=== PATIENT | female | born 1950 | race Caucasian/White ===

== ENCOUNTER 2017-07-21 07:11 | Day surgery (SDC) | payer OTHER ==
[~2017-07-21] VITALS: Ht 167.6 cm; Wt 72.6 kg
[~2017-07-21 07:11] MED LIST: AMOX875; CONEST.3 PO; CONEST.9 PO; HYDACE5 PO; NAPR500 PO; Pepcid 20 mg Ta20 MG GT
[2018-02-23] MEDS ORDERED: Ocuflox5 ML OD (17:48)
[2018-02-23] MEDS ORDERED: GENPREOPSU (17:48)
[2018-02-23] MEDS ORDERED: NEO-POLYCIN HC3.5 GM OP (17:49)
[2018-02-23] MEDS ORDERED: Bactrim Ds Tab1 EACH PO (20:18)
== END 2017-07-21 09:04 | disposition home or self-care (01) ==
LOC: ORSCMMR 07:11
PROVIDERS: Internal Medicine Gastroenterology
PROC: 0DB58ZX Excision of Esophagus, Via Natural or Artificial Opening Endoscopic, Diagnostic (ICD-10-PCS; principal; 2017-07-21 08:00)
PROC: 0DB68ZX Excision of Stomach, Via Natural or Artificial Opening Endoscopic, Diagnostic (ICD-10-PCS; principal; 2017-07-21 08:00)
PROC: 0D758ZZ Dilation of Esophagus, Via Natural or Artificial Opening Endoscopic (ICD-10-PCS; principal; 2017-07-21 08:00)
PROC: 0DB48ZX Excision of Esophagogastric Junction, Via Natural or Artificial Opening Endoscopic, Diagnostic (ICD-10-PCS; principal; 2017-07-21 08:00)
DX: K21.9 Gastro-esophageal reflux disease without esophagitis (principal); K22.2 Esophageal obstruction; K44.9 Diaphragmatic hernia without obstruction or gangrene; R13.10 Dysphagia, unspecified; Z79.890 Hormone replacement therapy
CPT/HCPCS: 88305; 88342; C1726; J7120

== ENCOUNTER 2018-02-25 15:01 | Emergency (ER) | payer OTHER ==
[~2018-02-25] VITALS: Ht 167.6 cm; Wt 65.8 kg
[~2018-02-25 15:01] MED LIST changes: +Bactrim Ds Tab1 EACH PO; +GENPREOPSU; +NEO-POLYCIN HC3.5 GM OP; +Ocuflox5 ML OD
[2018-02-25] MEDS ORDERED: OXYB5 PO (16:11)
[2018-02-25] MEDS ORDERED: TAMS.4ER PO (16:12)
== END 2018-02-25 16:54 | disposition home or self-care (01) ==
LOC: ER 15:01
DX: N99.89 Other postprocedural complications and disorders of genitourinary system (principal); R33.9 Retention of urine, unspecified; Z79.899 Other long term (current) drug therapy
CPT/HCPCS: 51702; 51798; 99282

== ENCOUNTER 2018-02-27 08:42 | Emergency (ER) | payer OTHER ==
[~2018-02-27] VITALS: Ht 167.6 cm; Wt 65.8 kg
[~2018-02-27 08:42] MED LIST changes: +OXYB5 PO; +TAMS.4ER PO
== END 2018-02-27 09:29 | disposition home or self-care (01) ==
LOC: ER 08:42
DX: Z46.6 Encounter for fitting and adjustment of urinary device (principal); N20.0 Calculus of kidney; Z88.0 Allergy status to penicillin; Z79.899 Other long term (current) drug therapy; Z79.52 Long term (current) use of systemic steroids
CPT/HCPCS: 99282

== ENCOUNTER 2018-08-26 08:09 | Day surgery (SDC) | payer OTHER | END 2018-08-26 12:00 | disposition home or self-care (01) | LOC: MOI US 08:09 → MOI MAM 08:30 → MOI US 08:30 | PROC: 0HBT3ZX Excision of Right Breast, Percutaneous Approach, Diagnostic (ICD-10-PCS; principal; 2018-08-26) | DX: N60.31 Fibrosclerosis of right breast (principal) | CPT/HCPCS: 19083; 77065; 88305; G0279 ==

== ENCOUNTER 2019-08-02 06:17 | Day surgery (SDC) | payer OTHER ==
[~2019-08-02] VITALS: Ht 167.6 cm; Wt 69.8 kg
[~2019-08-02 06:17] MED LIST changes: +NAPR500
--- NOTE | 2019-08-02 08:10 | NUR ---
08/02/19 0810 Mala Shabazz DISCHARGE TEACHING DONE WITH PATIENT AND SPOUSE. STATES UNDERSTANDING. WALKED OUT WITH RN. GAIT STEADY.
== END 2019-08-02 08:11 | disposition home or self-care (01) ==
LOC: ORSCSDS 06:17
PROVIDERS: Ophthalmology
PROC: 08RJ3JZ Replacement of Right Lens with Synthetic Substitute, Percutaneous Approach (ICD-10-PCS; principal; 2019-08-02 07:30)
DX: H25.11 Age-related nuclear cataract, right eye (principal)
CPT/HCPCS: J2001; J2250; J3010; J3301; J7040; V2632

== ENCOUNTER → 2020-02-28 | Outpatient (CLI) | payer OTHER | END | disposition home or self-care (01) | LOC: LAB SHORT 12:30 → LAB 12:30 | DX: R30.0 Dysuria (principal) | CPT/HCPCS: 87086 ==

== ENCOUNTER → 2020-05-06 | Outpatient (CLI) | payer OTHER ==
[2020-05-06 21:41] LABS: Source, Urine Clean Catch
[2020-05-06 21:52] LABS: Appearance, Urine Hazy (Clear); Blood, Urine 1+ (Neg); Color, Urine Yellow (P-Yellow); Glucose Qualitative, Urine Neg (Neg); Ketones, Urine 1+ (Neg); Leukocyte Esterase, Urine 2+ (Neg); Nitrite, Urine Neg (Neg); Protein, Urine 2+ (Neg); Urobilinogen, Urine 1+ (Normal)
[2020-05-06 22:05] LABS: Bilirubin, Urine 1+ (Neg)
[2020-05-06 22:08] LABS: Bacteria Many /hpf; Squamous Epithelial Cells Many /hpf (Few)
[2020-05-06 22:09] LABS: Calcium Oxalate Crystals Few /hpf; Uric Acid Crystals Few /hpf
== END | disposition home or self-care (01) ==
LOC: LAB 21:38 → LAB SHORT 21:38
PROVIDERS: Family Medicine
DX: R30.0 Dysuria (principal)
CPT/HCPCS: 81001; 87086

== ENCOUNTER → 2020-05-14 | Outpatient (CLI) | payer OTHER ==
[~2020-05-14] MED LIST changes: +OMEP20ER PO; +Premarin0.3 MG PO
== END | disposition home or self-care (01) ==
LOC: LAB 18:46
DX: R30.0 Dysuria (principal)
CPT/HCPCS: 87086

== ENCOUNTER 2020-06-27 06:56 | Day surgery (SDC) | payer OTHER ==
[~2020-06-27] VITALS: Ht 167.6 cm; Wt 67.3 kg
[~2020-06-27 06:56] MED LIST changes: -OMEP20ER PO; -Premarin0.3 MG PO
[2020-06-27] MEDS ORDERED: OMEP20ER PO (07:21)
[2020-06-27] MEDS ORDERED: Premarin0.3 MG PO (07:21)
--- NOTE | 2020-06-27 07:30 | NUR ---
History, Chart, Medications and Allergies reviewed before start of procedure. Lungs clear T/O to Auscultation. Patient confirms NPO status and agrees with scheduled surgery. Pre-Op teaching done. Pt verbalizes understanding. Patient states colon prep results clear.
--- NOTE | 2020-06-27 08:23 | NUR ---
06/27/20 0823 Cinda Atwood History, Chart, Medications and Allergies reviewed before start of procedure.PATIENT DETERMINED TO BE ASA APPROPRIATE FOR PROPOFOL SEDATION PRIOR TO START OF PROCEDURE BY . Patient confirms NPO status and agrees with scheduled surgery.MONITOR INTACT WITH CONTINUOUS PULSE OXIMETRY AND INTERMITTENT BP.3-LEAD EKG REVIEWED WITH PHYSICIAN PRIOR TO START OF PROCEDURE.O2 VIA N/C INTACT THROUGHOUT SEDATION/PROCEDURE.Bite Block Placed.
--- NOTE | 2020-06-27 09:26 | NUR ---
Patient up to Ambulate independently. Gait steady. Discharge instructions reviewed with patient. Patient verbalizes understanding. Copy given to patient to take home. Discharged via wheelchair to private car for ride home.
== END 2020-06-27 22:38 | disposition home or self-care (01) ==
LOC: ORSCMMR 06:56
PROVIDERS: Internal Medicine Gastroenterology
PROC: 0DB68ZX Excision of Stomach, Via Natural or Artificial Opening Endoscopic, Diagnostic (ICD-10-PCS; principal; 2020-06-27 08:00)
PROC: 0DBH8ZX Excision of Cecum, Via Natural or Artificial Opening Endoscopic, Diagnostic (ICD-10-PCS; principal; 2020-06-27 08:00)
PROC: 0DB48ZX Excision of Esophagogastric Junction, Via Natural or Artificial Opening Endoscopic, Diagnostic (ICD-10-PCS; principal; 2020-06-27 08:00)
PROC: 0D758ZZ Dilation of Esophagus, Via Natural or Artificial Opening Endoscopic (ICD-10-PCS; principal; 2020-06-27 08:00)
PROC: 0DB58ZX Excision of Esophagus, Via Natural or Artificial Opening Endoscopic, Diagnostic (ICD-10-PCS; principal; 2020-06-27 08:00)
DX: R13.14 Dysphagia, pharyngoesophageal phase (principal); Z86.010 Personal history of colon polyps; K22.2 Esophageal obstruction; K21.9 Gastro-esophageal reflux disease without esophagitis; K44.9 Diaphragmatic hernia without obstruction or gangrene; K57.30 Diverticulosis of large intestine without perforation or abscess without bleeding; Z79.899 Other long term (current) drug therapy
CPT/HCPCS: 88305; 88342; C1726; J2704; J7120

== ENCOUNTER 2021-01-27 12:57 | Emergency (ER) | payer OTHER ==
[~2021-01-27] VITALS: Ht 167.6 cm; Wt 63.5 kg
[~2021-01-27 12:57] MED LIST changes: +OMEP20ER PO; +Premarin0.3 MG PO
[2021-01-27] MEDS ORDERED: ALBU90OI INH (14:37)
[2021-01-27] MEDS ORDERED: ONDA4ODT MM (14:37)
== END 2021-01-27 14:38 | disposition home or self-care (01) ==
LOC: ER 12:57
DX: U07.1 COVID-19 (principal); R11.0 Nausea; Z79.899 Other long term (current) drug therapy; Z88.2 Allergy status to sulfonamides; Z88.0 Allergy status to penicillin; Z88.8 Allergy status to other drugs, medicaments and biological substances
CPT/HCPCS: 99284

== ENCOUNTER → 2021-09-29 | Outpatient (CLI) | payer OTHER ==
[~2021-09-29] MED LIST changes: +ALBU90OI INH; +ONDA4ODT MM
[2021-09-29 12:20] LABS: Source, Urine Voided
[2021-09-29 14:56] LABS: Appearance, Urine Hazy (Clear); Bilirubin, Urine Neg (Neg); Blood, Urine 1+ (Neg); Glucose Qualitative, Urine Neg (Neg); Ketones, Urine Neg (Neg); Leukocyte Esterase, Urine 3+ (Neg); Nitrite, Urine Neg (Neg); Protein, Urine 1+ (Neg); Specific Gravity, Urine 1.015 (1.003-1.022); Urobilinogen, Urine NORM (Normal)
[2021-09-29 16:09] LABS: Color, Urine Pale Yellow (P-Yellow)
[2021-09-29 16:10] LABS: Amorphous Mod (0-Heavy); Bacteria Mod /hpf; Calcium Oxalate Crystals Many /hpf; Mucus Light (0-Heavy); Squamous Epithelial Cells Many /hpf (Few); Transitional Epithelial Cells Few /hpf (0-Rare)
[2021-09-29 16:11] LABS: White Blood Cells, Urine 25-50 /hpf (0-5)
== END ==
LOC: LAB SHORT 12:17
PROVIDERS: Student in an Organized Health Care Education/Training Program
DX: R94.4 Abnormal results of kidney function studies (principal)
CPT/HCPCS: 81001

== ENCOUNTER → 2023-03-05 | Outpatient (CLI) | payer OTHER | END | disposition home or self-care (01) | LOC: LAB SHORT 11:30 → LAB 11:30 | DX: R35.0 Frequency of micturition (principal) | CPT/HCPCS: 87077; 87086; 87186 ==

== ENCOUNTER → 2023-03-17 | Outpatient (CLI) | payer OTHER | LOC: LAB EV 15:02 → LAB SHORT 15:02 | DX: R30.0 Dysuria (principal); R35.0 Frequency of micturition | CPT/HCPCS: 87086 ==

== ENCOUNTER → 2023-07-18 | Outpatient (CLI) | payer OTHER | LOC: LAB 11:30 → LAB SHORT 11:30 | DX: R30.0 Dysuria (principal) | CPT/HCPCS: 87077; 87086; 87186 ==

== ENCOUNTER → 2023-07-27 | Outpatient (CLI) | payer OTHER | END | disposition home or self-care (01) | LOC: LAB SHORT 16:48 → LAB 16:48 | DX: N30.00 Acute cystitis without hematuria (principal) | CPT/HCPCS: 87086 ==

== ENCOUNTER 2024-04-27 06:08 | Day surgery (SDC) | payer OTHER ==
[~2024-04-27] VITALS: Ht 167.6 cm; Wt 66.5 kg
[~2024-04-27 06:08] MED LIST changes: +Balanced Salt Epinephrine Irrigation Solution 500 mL IR SCH; +Lidocaine HCl/Pf 1% 5 ML VIAL XX SCH; +Moxifloxacin HCL 0.5 MG/0.1 ML 0.4MLSYR LEFTEYE SCH; +PHENYLEPHRINE\\TROPICAMIDE\\TETRACAINE OPHTHALMIC DILATING SOLN LEFTEYE PRN; +Povidone-Iodine 450 DROP/30 ML Solution LEFTEYE SCH; +Povidone-Iodine 450 DROP/30 ML Solution ONE; +Tetracaine HCl/Pf 0.5% Opth Soln 4 ml ONE; +Triamcinolone Inj Susp 40 MG / ML 1ML Vial INJ SCH
[2024-04-27] MEDS ORDERED: IBUP200 PO (06:32)
[2024-04-27] MEDS ORDERED: Lidocaine HCl/Pf 1% 5 ML VIAL ONE (06:44)
[2024-04-27] MEDS ORDERED: Triamcinolone Inj Susp 40 MG / ML 1ML Vial ONE (06:44)
[2024-04-27] MEDS ORDERED: Midazolam HCl 1MG / ML 2ML Vial ONE (07:04)
[2024-04-27] MEDS ORDERED: Ondansetron HCl 2 MG / ML 2ML Vial ONE (07:04)
[2024-04-27 08:05] VITALS: BP 114/84
== END 2024-04-27 07:57 | disposition home or self-care (01) ==
LOC: ORSCSDS 06:08
PROVIDERS: Ophthalmology
PROC: 08RK3JZ Replacement of Left Lens with Synthetic Substitute, Percutaneous Approach (ICD-10-PCS; principal; 2024-04-27 07:30)
DX: H25.812 Combined forms of age-related cataract, left eye (principal); Z79.899 Other long term (current) drug therapy
CPT/HCPCS: J2003; J2250; J2405; J3301; V2632